=== PATIENT | male | born 1985 | race Caucasian/White ===

== ENCOUNTER 2019-10-24 20:29 | Emergency (ER) | payer OTHER ==
--- NOTE | 2019-10-24 20:34 | ED Physician Documentation ---
History of Present Illness - Stated complaint Stated Complaint: CP,FEET SWELLING - History obtained from History obtained from: Patient (the patient is a 34 y/o male who presents with mild swelling of his hands and his feet and feeling palpitations in his chest. the patient reports he has a history of hereditary angioedema and take takhzyro 300 mg SC q2wk at home and carries icatabant with him at all times. he did not try and treatment prior to arrival. the patient reports that he typically will present with abd pain and that occasionally he received inpatient treatment with IV FFP. he denies abd pain currently, reports he has never had any abd surgery and has never been intubated, reports epinephrine, steroids, H2 and H1 georgina are not effective for his HAE. patient only c/o today is mild erythema of hands and feet and palpitations without sob or chest pain.) Review of Systems Constitutional: reports: Reviewed and negative Eyes: reports: Reviewed and negative Ears: reports: Reviewed and negative Nose: reports: Reviewed and negative Throat: reports: Reviewed and negative Cardiac: reports: Palpitations Respiratory: reports: Reviewed and negative GI: reports: Reviewed and negative : reports: Reviewed and negative Skin: reports: Other (redness of hands and feet) Musculoskeletal: reports: Reviewed and negative Neurologic: reports: Reviewed and negative Psychiatric: reports: Reviewed and negative Endocrine: reports: Reviewed and negative Immunocompromised: reports: Reviewed and negative PD PAST MEDICAL HISTORY - Allergies Allergies/Adverse Reactions: Allergies Allergy/AdvReac Type Severity Reaction Status Date / Time ibuprofen [From Motrin] Allergy Unknown Verified 10/24/19 20:45 PD ED PE NORMAL - Vitals Vital signs reviewed: Yes - General General: Alert and oriented X 3, No acute distress, Well developed/nourished - HEENT HEENT: Atraumatic, PERRL, Ears normal, Moist mucous membranes, Pharynx benign, Dentition benign, Other (mallampatti 1, uvual midline, no swelling or the mouth, normal voice, tolerating secretions, no respiratory distress no swelling of the face, lips or ears/orbits) - Neck Neck: Supple, no meningeal sign, No adenopathy, Thyroid normal, No JVD, No bruit, Other (trachea midline, no resp distress) - Cardiac Cardiac: RRR, No murmur - Respiratory Respiratory: No respiratory distress, Clear bilaterally - Abdomen Abdomen: Normal bowel sounds, Soft, Non tender, Non distended, No organomegaly - Back Back: No CVA TTP, No spinal TTP - Derm Derm: Normal color, Warm and dry, Other (mild erythema of the volar left wrist, feet without swelling or erythema, no swelling of b/l hands.) - Extremities Extremities: No deformity - Neuro Neuro: Alert and oriented X 3, 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 ekg and cxr are unremarkable. will dc home with close follow up.), considered differential (hx and exam are consistent with HAE. patient well appearing currently, EKG unremarkable, CXR unremarkable, no distress. will observe, if necessary will treat with icatabant.) Departure - Departure Disposition: 01 Home, Self Care Clinical Impression: Hereditary angio-edema Condition: Stable Instructions: ED Angioedema Follow-Up: your, doctor [Other] - Tomorrow Comments: follow up with your physician tomorrow, use icatabant as needed, return to the emergency department with any concerns.
[2019-10-24 21:16] VITALS: BP 103/79
--- NOTE | 2019-10-24 21:22 | XRAY Report ---
Reason: palpitations Procedure Date: 10/24/2019 Accession Number: [id number] / [id number] Procedure: XR - Chest 1 View X-Ray CPT Code: 47033 Final Report FULL RESULT: EXAM: CHEST RADIOGRAPHY EXAM DATE: 10/24/2019 08:50 PM. CLINICAL HISTORY: Palpitations. COMPARISON: None. TECHNIQUE: 1 view. FINDINGS: Lungs/Pleura: No significant consolidation, effusion, or definite pneumothorax. Mediastinum: Cardiac silhouette is within normal limits when accounting for lung volumes and technique. Other: No evident acute displaced fracture. IMPRESSION: Normal appearance of the chest. [facility]IA
== END 2019-10-24 21:41 | disposition home or self-care (01) ==
LOC: ED 20:29
DX: D84.1 Defects in the complement system (principal)
CPT/HCPCS: 71045; 93005; 99283; 99284